=== PATIENT | female | born 1950 ===

== ENCOUNTER 2017-05-02 08:39 | Emergency (ER) | payer SELFPAY ==
[~2017-05-02] VITALS: Ht 162.6 cm; Wt 55.0 kg
[~2017-05-02 08:39] MED LIST: PENI500T PO; TYLE3 PO; Z.0.NO CURRENT MEDS
[2017-05-02 08:58] VITALS: BP 127/60; PULSE 63; RESP 17; TEMP 97.9; O2SAT 100
[2017-05-02] MEDS ORDERED: SODIUM CHLOR 0.9% 1000 ML INJ 1,000 ML IV ONE (09:01)
[2017-05-02 09:03] VITALS: BP 127/60; PULSE 62; RESP 17; TEMP 97.9; O2SAT 100
[2017-05-02 09:04] VITALS: BP 127/60; PULSE 62; RESP 17; TEMP 97.9; O2SAT 100
[2017-05-02] MEDS ORDERED: SODIUM CHLORIDE 0.9% FLUSH 10 ML FLUSH IVF PRN (09:15)
[2017-05-02] MEDS ORDERED: MECLIZINE HCL 25 MG TAB PO ONE (09:15)
[2017-05-02 09:37] VITALS: BP_SYST 113; BP_SYST 116; BP_SYST 118; BP_DIAS 62; BP_DIAS 63; BP_DIAS 64; RESP 16; RESP 17
[2017-05-02 09:44] LABS: AUTOMATED NEUTROPHIL # 5.9 TH/MM3 (1.8-7.7); BASOPHIL % 0.1 % (0.0-2.0); EOSINOPHIL % 0.2 % (0.0-4.0); HEMATOCRIT 34.1 % (35.0-46.0); HEMO FLAGS DIFF FINAL; LYMPH % 14.9 % (9.0-44.0); LYMPHOCYTE # 1.1 TH/MM3 (1.0-4.8); MEAN CELL VOLUME 89.5 FL (80.0-100.0); MEAN CORPUSCULAR HEMOGLOBIN 30.1 PG (27.0-34.0); MEAN CORPUSCULAR HGB CONC 33.7 % (32.0-36.0); MONO % 2.3 % (0.0-8.0); NEUT % 82.5 % (16.0-70.0); PLATELET COUNT 243 TH/MM3 (150-450); RED BLOOD COUNT 3.81 MIL/MM3 (4.00-5.30); RED CELL DISTRIBUTION WIDTH 13.6 % (11.6-17.2); WHITE BLOOD COUNT 7.2 TH/MM3 (4.0-11.0)
[2017-05-02 09:56] LABS: BACTERIA, URINE OCC /hpf; BLOOD, URINE MOD (NEG); COMMENT (UR) CULT NOT INDICATED; CULTURE IF INDICATED CULT NOT INDICATED; GLUCOSE,URINE NEG (NEG); KETONE, URINE 10 mg/dL (NEG); MUCUS URINE FEW /lpf (OCC); NITRITE,URINE NEG (NEG); SQUAMOUS EPITHELIAL CELL URINE <1 /hpf (0-5); URINE COLOR YELLOW (YELLW/STRAW)
[2017-05-02] MEDS ORDERED: MECL-62 PO (10:00)
--- NOTE | 2017-05-02 10:00 | PD ---
HPI Chief Complaint: GI Complaint Time Seen by Provider: 09:01 Travel History International Travel<30 days: No Contact w/Intl Traveler<30days: No Traveled to known affect area: No History of Present Illness HPI 67-year-old female arrives by EMS. She reports dizziness over the past 3 days. The sensation is vertiginous as if the room is spinning around her. Associated symptoms include nausea. She received Zofran en route by EMS and reports that to be helpful. No chest pain or shortness of breath. She reports one similar prior episode. Of note patient speaks Turkish and translation service was provided however patient refused electing translation by the undersigned at the bedside. No headache. The patient reports diarrhea over the past couple days without abdominal pain or urinary complaints. Patient has no ear complaints. PFSH Past Medical History Medical History: Denies Significant Hx Tetanus Vaccination: Unknown Influenza Vaccination: No Past Surgical History Section: Yes Social History Alcohol Use: No Tobacco Use: No Substance Use: No Allergies-Medications (Allergen,Severity, Reaction): Coded Allergies: Penicillins (Verified Allergy, Unknown, 05/02/17) Reported Meds & Prescriptions Reported Meds & Active Scripts Active Meclizine (Meclizine HCl) 25 Mg Tab 25 Mg PO TID PRN Tylenol #3 (Acetaminophen/Codeine Phosphate) 300 Mg/30 Mg Tab 1-2 Tab PO Q6HPRN Pen Vk (Penicillin V Potassium) 500 Mg Tab 500 Mg PO QID Reported No Current Meds (Miscellaneous Medication) Misc Review of Systems Except as stated in HPI: all other systems reviewed are Neg General / Constitutional: No: Fever HENT: Positive: Vertigo Gastrointestinal: Positive: Nausea Physical Exam Narrative GENERAL: 67-year-old female well-nourished well-developed, speaks Turkish SKIN: Warm and dry. HEAD: Atraumatic. Normocephalic. EYES: No nystagmus. Extraocular muscles are normal. ENT: No nasal bleeding or discharge. Mucous membranes pink and moist. NECK: Trachea midline. No JVD. CARDIOVASCULAR: Regular rate and rhythm. RESPIRATORY: No accessory muscle use. Clear to auscultation. Breath sounds equal bilaterally. GASTROINTESTINAL: Abdomen soft, non-tender, nondistended. Hepatic and splenic margins not palpable. MUSCULOSKELETAL: Extremities without clubbing, cyanosis, or edema. No obvious deformities. NEUROLOGICAL: Cranial nerves are normal. Finger-nose is normal. Kqrb-me-bpjw is normal. Rapid alternating movements normal. No nystagmus. PSYCHIATRIC: Appropriate mood and affect; insight and judgment normal. Data Data Last Documented VS Vital Signs Date Time Temp Pulse Resp B/P (MAP) Pulse Ox O2 Delivery O2 Flow Rate FiO2 05/02/17 09:37 64 16 116/62 (80) 61 17 118/64 (82) 60 17 113/63 (80) 05/02/17 09:04 97.9 100 Room Air VS reviewed Orders Orders Electrocardiogram (05/02/17 09:01) Complete Blood Count With Diff (05/02/17 09:) Urinalysis - C+S If Indicated (05/02/17 09:) Ct Brain W/O Iv Contrast(Rout) (05/02/17 09:01) Blood Glucose (05/02/17 09:01) Ecg Monitoring (05/02/17 09:) Iv Access Insert/Monitor (05/02/17 09:) Oximetry (05/02/17 09:01) Meclizine (Antivert) (05/02/17 09:15) Sodium Chloride 0.9% Flush (Ns Flush) (05/02/17 09:15) Sodium Chlor 0.9% 1000 Ml Inj (Ns 1000 M (05/02/17 09:01) Orthostatic Vital Signs (05/02/17 09:01) Basic Metabolic Panel (Bmp) (05/02/17 09:01) Ed Discharge Order (05/02/17 10:20) Labs Laboratory Tests Test 05/02/17 09:20 05/02/17 09:30 White Blood Count 7.2 TH/MM3 Red Blood Count 3.81 MIL/MM3 Hemoglobin 11.5 GM/DL Hematocrit 34.1 % Mean Corpuscular Volume 89.5 FL Mean Corpuscular Hemoglobin 30.1 PG Mean Corpuscular Hemoglobin Concent 33.7 % Red Cell Distribution Width 13.6 % Platelet Count 243 TH/MM3 Mean Platelet Volume 7.3 FL Neutrophils (%) (Auto) 82.5 % Lymphocytes (%) (Auto) 14.9 % Monocytes (%) (Auto) 2.3 % Eosinophils (%) (Auto) 0.2 % Basophils (%) (Auto) 0.1 % Neutrophils # (Auto) 5.9 TH/MM3 Lymphocytes # (Auto) 1.1 TH/MM3 Monocytes # (Auto) 0.2 TH/MM3 Eosinophils # (Auto) 0.0 TH/MM3 Basophils # (Auto) 0.0 TH/MM3 CBC Comment DIFF FINAL Differential Comment Blood Urea Nitrogen 21 MG/DL Creatinine 0.56 MG/DL Random Glucose 103 MG/DL Calcium Level 8.3 MG/DL Sodium Level 142 MEQ/L Potassium Level 3.5 MEQ/L Chloride Level 106 MEQ/L Carbon Dioxide Level 28.5 MEQ/L Anion Gap 8 MEQ/L Estimat Glomerular Filtration Rate 109 ML/MIN Urine Color YELLOW Urine Turbidity CLEAR Urine pH 6.0 Urine Specific [place] 1.018 Urine Protein NEG mg/dL Urine Glucose (UA) NEG mg/dL Urine Ketones 10 mg/dL Urine Occult Blood MOD Urine Nitrite NEG Urine Bilirubin NEG Urine Urobilinogen LESS THAN 2.0 MG/DL Urine Leukocyte Esterase NEG Urine RBC 13 /hpf Urine WBC 3 /hpf Urine Squamous Epithelial Cells <1 /hpf Urine Bacteria OCC /hpf Urine Mucus FEW /lpf Microscopic Urinalysis Comment CULT NOT INDICATED MDM Medical Decision Making Medical Screen Exam Complete: Yes Emergency Medical Condition: Yes Medical Record Reviewed: Yes Differential Diagnosis Central vertigo, peripheral vertigo, electrolyte imbalance, UTI, medication side effect, colitis Narrative Course EKG shows a sinus rhythm rate 59 normal axis intervals, P waves appear inverted CBC & BMP Diagram 05/02/17 09:20 Calcium Level 8.3 L Last [address] 05/02/17 0901 Signed Impressions: Service Date/Time: Tuesday, May 02, 2017 09:39 - CONCLUSION: 1. No acute intracranial abnormality. Shiv Luke MD Patient is mildly dehydrated based and the BUN/creatinine ratio, with her history of decreased oral intake of water which was elicited at the time of reassessment and diarrhea. Aggressive oral hydration discussed. Meclizine as needed. Follow-up with primary care. Diagnosis Primary Impression: Vertigo Additional Impression: Dehydration Med/Other Pt SpecificInfo: Prescription(s) given Scripts Ondansetron Odt (Zofran Odt) 4 Mg Tab 4 MG SL Q8HR Y for Nausea/Vomiting, #10 TAB 0 Refills Prov: Louis Graves MD 05/02/17 Meclizine (Meclizine) 25 Mg Tab 25 MG PO TID Y for VERTIGO, #15 TAB 0 Refills Prov: Louis Graves MD 05/02/17 Disposition: 01 DISCHARGE HOME Condition: Stable Louis Graves MD May 02, 2017 10:00
--- NOTE | 2017-05-02 10:01 | RADRPT ---
EXAM DATE/TIME: 05/02/2017 09:39 [facility] COMPARISON: No previous studies available for comparison. INDICATIONS : Dizziness and right sided cephalgia today. RADIATION DOSE: 28.04 CTDIvol (mGy) MEDICAL HISTORY : None SURGICAL HISTORY : section. ENCOUNTER: Initial ACUITY: 1 day PAIN SCALE: 7/10 LOCATION: Right head TECHNIQUE: Multiple contiguous axial images were obtained of the head. Using automated exposure control and adj ustment of the mA and/or kV according to patient size, radiation dose was kept as low as reasonably a chievable to obtain optimal diagnostic quality images. DICOM format image data is available electro nically for review and comparison. FINDINGS: CEREBRUM: Mild diffuse cerebral volume loss. The ventricles are normal for age. No evidence of midline shift, mass lesion, hemorrhage or acute infarction. No extra-axial fluid collections are seen. POSTERIOR FOSSA: The cerebellum and brainstem are intact. The 4th ventricle is midline. The cerebellopontine angle i s unremarkable. EXTRACRANIAL: The visualized portion of the orbits is intact. SKULL: The calvaria is intact. No evidence of skull fracture. CONCLUSION: 1. No acute intracranial abnormality. Shiv Luke MD on May 02, 2017 at 9:58 Board Certified Radiologist. This report was verified electronically.
[2017-05-02 10:07] LABS: BICARBONATE 28.5 MEQ/L (21.0-32.0); POTASSIUM 3.5 MEQ/L (3.5-5.1)
[2017-05-02] MEDS ORDERED: ZOFR4TAB3 SL (10:24)
[2017-05-02 10:50] VITALS: BP 127/58
--- NOTE | 2017-05-03 12:33 | EKG ---
Date Performed: 05/02/2017 Time Performed: 09:27:19 PTAGE: 67 years EKG: ECTOPIC ATRIAL BRADYCARDIA ABNORMAL RHYTHM ECG NO PREVIOUS TRACING DOCTOR: Stas Leigh Interpretating Date/Time 05/03/2017 12:32:24
== END 2017-05-02 11:33 | disposition home or self-care (01) ==
LOC: NEPE 08:39 → EDBD 08:39 → NEPE 11:33
DX: E86.0 Dehydration (principal); R19.7 Diarrhea, unspecified
CPT/HCPCS: 70450; 80048; 81001; 85025; 93005; 96360; 99285; J7030